=== PATIENT | male | born 1980 | race Two or more races ===

== ENCOUNTER → 2017-11-21 | Emergency (ER) | payer MEDICAID ==
[~2017-11-21] VITALS: Ht 167.6 cm; Wt 90.7 kg
[~2017-11-21] MED LIST: HYDROCODON-ACE1 EA15 ORAL; HYDROmorphone 1mg/ml Carpuject IVP ONE
[2017-11-21 23:45] VITALS: BP 142/86
[2017-11-21 23:47] LABS: APPEARANCE,URINE CLEAR; BILIRUBIN, URINE NEGATIVE (NEGATIVE); COLOR,URINE PALE YELLOW; GLUCOSE, URINE (UA) NEGATIVE (NEGATIVE); KETONES,URINE NEGATIVE (NEGATIVE); LEUKOCYTE ESTERASE ,URINE NEGATIVE (NEGATIVE); NITRITE,URINE NEGATIVE (NEGATIVE); PH,URINE 6.5 (4.5-8.0); PROTEIN,URINE NEGATIVE (NEGATIVE); UROBILINOGEN,URINE NORMAL MG/DL (0.0-1.0)
[2017-11-21 23:55] LABS: BASOPHILS % (AUTO) 0.8 % (0.0-2.0); EOSINOPHILS % (AUTO) 2.6 % (0.0-3.0); HEMOGLOBIN 14.2 G/DL (14.2-18.0); LYMPHOCYTES % (AUTO) 33.2 % (20.0-45.0); MEAN CORPUSCULAR VOLUME 86 FL (80-99); MONOCYTES % (AUTO) 9.9 % (1.0-10.0); NEUTROPHILS % (AUTO) 53.5 % (45.0-75.0); PLATELET COUNT 271 K/UL (150-450); RED BLOOD COUNT 4.54 M/UL (4.70-6.10); RED CELL DISTRIBUTION WIDTH 10.4 % (11.6-14.8); WHITE BLOOD COUNT 7.9 K/UL (4.8-10.8)
[2017-11-22 00:09] LABS: ANION GAP 7 mmol/L (5-15); BLOOD UREA NITROGEN 10 mg/dL (7-18); CALCIUM 8.8 MG/DL (8.5-10.1); CARBON DIOXIDE 29 MMOL/L (21-32); CHLORIDE 102 MMOL/L (98-107); CREATININE 0.9 MG/DL (0.55-1.30); POTASSIUM 3.3 MMOL/L (3.5-5.1); SODIUM 137 MMOL/L (136-145)
[2017-11-22 00:15] LABS: ALANINE AMINOTRANSFERASE 32 U/L (12-78); ALBUMIN 3.5 G/DL (3.4-5.0); ALBUMIN/GLOBULIN RATIO 0.8 (1.0-2.7); ALKALINE PHOSPHATASE 97 U/L (46-116); ASPARTATE AMINO TRANSFERASE 20 U/L (15-37); BILIRUBIN,TOTAL 0.6 MG/DL (0.2-1.0)
--- NOTE | 2017-11-22 00:42 | Emergency Room Report ---
History of Present Illness General Chief Complaint: Abdominal Pain Source: Patient Present Illness HPI This is a 37-year-old with no past medical history. He presents with chief complaint of bilateral quadrant pain. His been on and off for about a week but worse for the last 24 hours. Now radiating to the back. Nauseous but no vomiting. No diarrhea. Worse with eating. Similar symptoms in the past. No workup done. Allergies: Coded Allergies: No Known Allergies (Unverified , 11/21/17) Patient History Past Medical History: see triage record, old chart reviewed Past Surgical History: none Pertinent Family History: none Social History: Denies: smoking Immunizations: other Reviewed Nursing Documentation: PMH: Agreed, PSxH: Agreed Nursing Documentation-PMH Past Medical History: No Stated History Review of Systems Eye: Denies: eye pain, blurred vision ENT: Denies: ear pain, nose congestion, throat swelling Respiratory: Denies: cough, shortness of breath Cardiovascular: Denies: chest pain, palpitations Gastrointestinal: Reports: abdominal pain, nausea, Denies: diarrhea, vomiting Musculoskeletal: Denies: back pain, joint pain Skin: Denies: rash Neurological: Denies: headache, numbness Endocrine: Denies: increased thirst, increased urine Hematologic/Lymphatic: Denies: easy bruising All Other Systems: negative except mentioned in HPI Physical Exam Vital Signs Date Time Temp Pulse Resp B/P (MAP) Pulse Ox O2 Delivery O2 Flow Rate FiO2 11/21/17 23:19 97.8 67 14 142/86 98 Room Air 97.9 vitals normal Sp02 EP Interpretation: reviewed, normal General Appearance: well appearing, no apparent distress, alert Head: normocephalic, atraumatic Eyes: bilateral eye PERRL, bilateral eye EOMI ENT: hearing grossly normal, normal pharynx Neck: full range of motion, supple, no meningismus Respiratory: chest non-tender, lungs clear, normal breath sounds Cardiovascular #1: regular rate, rhythm, no murmur Gastrointestinal: normal bowel sounds, no mass, no organomegaly, no bruit, non- distended, tenderness - Right upper quadrant Musculoskeletal: back normal, gait/station normal, normal range of motion Psychiatric: mood/affect normal Skin: warm/dry Medical Decision Making Diagnostic Impression: Primary Impression: Cholelithiasis Qualified Codes: K80.20 - Calculus of gallbladder without cholecystitis without obstruction Additional Impression: Biliary colic ER Course Patient with right upper quadrant consistent with colic. I did a bedside ultrasound. Negative Burrell sign. He has a large gallstone but no obstruction. No stone in the neck of the gallbladder. Common bile duct normal. Gallbladder wall normal. Lab Results Impression labs normal Last Vital Signs Date Time Temp Pulse Resp B/P (MAP) Pulse Ox O2 Delivery O2 Flow Rate FiO2 11/21/17 23:53 97.8 11/21/17 23:19 67 14 142/86 98 Room Air Status: improved Disposition: HOME, SELF-CARE Condition: Stable Scripts Hydrocodone/Acetaminophen 5-325* (HYDROCODONE/ACETAMINOPHEN 5-325*) 1 Each Tablet 1 TAB ORAL Q6H Y for For Pain, #30 TAB 0 Refills Prov: FAITH HERZOG M.D. 11/22/17 Additional Instructions: Followup with your DrDeangelo in 7 days. You may need a referral to see a surgeon. Call the surgeon listed or followup at [facility]. Return if worse. FAITH HERZOG M.D. Nov 22, 2017 00:42
[2017-11-22 00:58] VITALS: BP 127/77
== END | disposition home or self-care (01) ==
LOC: EMR 23:33
DX: K80.20 Calculus of gallbladder without cholecystitis without obstruction (principal)
CPT/HCPCS: 36415; 80053; 81003; 83690; 85025; 96374; 96375; 99284; J1170; J2405

== ENCOUNTER 2019-07-10 18:50 | Emergency (ER) | payer MEDICAID ==
[~2019-07-10] VITALS: Ht 162.6 cm; Wt 79.4 kg
[~2019-07-10 18:50] MED LIST changes: -HYDROmorphone 1mg/ml Carpuject IVP ONE
[2019-07-10 19:00] VITALS: BP 124/84
--- NOTE | 2019-07-10 19:10 | NUR ---
ED Nurse Note: Pt came in due to tension headache x 3 days. Also reports recent blurring of his vision. Denies trauma but states he had a brain surgery a year ago. AAO x4 and ambulatory. Family member at the bed side.
--- NOTE | 2019-07-10 20:49 | Diagnostic Imaging Report ---
Indication: Headache and blurred vision 35-year-old Technique: The head was imaged in a 1.5 Beata magnet. Sequences obtained include sagittal and axial T1 FLAIR, axial T2 fast spin echo with fat saturation, axial T2* GRE, axial T2 FLAIR, diffusion and ADC map. Comparison: None Findings: The size, contour, and configuration of the sulci, ventricles, and basal cisterns appear normal. Alejandro-white differentiation is normal. There is no restricted diffusion. There is no mass effect, midline shift, edema, or hemorrhage. There are no abnormal extra-axial or intra-axial fluid collections. The corpus callosum is unremarkable. The brainstem and cerebellum are unremarkable. The sella is unremarkable. There is a small fluid retention cyst demonstrated within the left maxillary sinus measuring 2.2 x 1.7 cm. Bone marrow signal within the visualized osseous structures appears age appropriate and unremarkable otherwise. Impression: Negative MRI brain without contrast. Left maxillary fluid retention cyst
[2019-07-10 21:06] VITALS: BP 128/85
--- NOTE | 2019-07-10 21:35 | Emergency Room Report ---
History of Present Illness General Chief Complaint: Headache Source: Patient Present Illness HPI The patient complains of a pressure-like feeling in the back of his head. He states he also gets intermittent lightheadedness and blurry vision. He is 1 year postop from a repair of an Arnold-Chiari malformation. He did see his neurosurgeon [address] and underwent CT scans that showed normal healing. He denies recent illness. Denies fever or chills. He denies weakness. Denies tingling or numbness. He denies nausea or vomiting. He has no other complaints. Allergies: Coded Allergies: No Known Allergies (Unverified , 11/21/17) Patient History Past Medical History: none, see triage record Past Surgical History: other - AC malformation repair Social History: Denies: smoking, alcohol use, drug use Reviewed Nursing Documentation: PMH: Agreed; PSxH: Agreed Nursing Documentation-PMH Past Medical History: No Stated History Review of Systems All Other Systems: negative except mentioned in HPI Physical Exam Vital Signs Date Time Temp Pulse Resp B/P (MAP) Pulse Ox O2 Delivery O2 Flow Rate FiO2 07/10/19 19:00 98.1 71 16 124/84 95 Room Air Sp02 EP Interpretation: reviewed, normal General Appearance: no apparent distress, alert, GCS 15, non-toxic Head: normocephalic, atraumatic Eyes: bilateral eye normal inspection, bilateral eye PERRL ENT: hearing grossly normal, normal pharynx, no angioedema, normal voice Neck: full range of motion, supple/symm/no masses Respiratory: chest non-tender, lungs clear, normal breath sounds, no respiratory distress, no retraction, no accessory muscle use, speaking full sentences Rectal: deferred Musculoskeletal: back normal, gait/station normal, normal range of motion, non- tender Neurologic: alert, oriented x3, responsive, motor strength/tone normal, sensory intact, speech normal Psychiatric: judgement/insight normal, memory normal, mood/affect normal, no suicidal/homicidal ideation Skin: no rash, normal color Medical Decision Making Diagnostic Impression: Primary Impression: Headache ER Course Given this patient's history of Arnold-Chiari malformation and neurosurgery, I did obtain an MRI of the brain that extended through the superior portion of the neck. There was no evidence of abnormalities. I am unsure of the etiology of the patient's symptoms. Patient was instructed to follow-up closely with his neurosurgeon. He is given close return precautions and follow-up instructions. CT/MRI/US Diagnostic Results CT/MRI/US Diagnostic Results : Imaging Test Ordered: MRI brain Impression No acute findings. See official report in electronic medical record. Last Vital Signs Date Time Temp Pulse Resp B/P (MAP) Pulse Ox O2 Delivery O2 Flow Rate FiO2 07/10/19 21:06 98.5 73 15 128/85 100 Room Air Status: improved Disposition: HOME, SELF-CARE Condition: Improved Referrals: NON PHYSICIAN (PCP) Patient Instructions: General Headache Without Cause Priyanka Dick DO Jul 10, 2019 21:35
[2019-07-10 21:42] VITALS: BP 132/70
--- NOTE | 2019-07-10 21:42 | NUR ---
ER DISCHARGE NOTE: Patient is cleared to be discharged per ERMD, pt is aox4, on room air, with stable vital signs. pt was given dc instructions, pt was able to verbalize understanding, pt id band removed without complications. pt is able to ambulate with steady gait. pt took all belongings and left with his family member.
== END 2019-07-10 21:42 | disposition home or self-care (01) ==
LOC: EMR 20:39
DX: R51 Headache (principal); Z86.79 Personal history of other diseases of the circulatory system
CPT/HCPCS: 70551; Z7502; 99284

== ENCOUNTER 2019-11-24 15:19 | Emergency (ER) | payer MEDICAID ==
[~2019-11-24] VITALS: Ht 160 cm; Wt 81.6 kg
[2019-11-24 15:57] VITALS: BP 127/79
--- NOTE | 2019-11-24 15:57 | NUR ---
ED Nurse Note: Patient walked in to Er c/o blured vision x 3 days, stated had cervical surgery 1 year ago.
--- NOTE | 2019-11-24 16:00 | Emergency Room Report ---
History of Present Illness General Chief Complaint: Eye Problems Source: Patient Present Illness HPI 36 YO Male is presenting with 4 days of having heavy fatigued eyelids that are worse late in the afternoon and resolved in the morning. Patient denies actual blurry vision or visual changes. Patient reports he has a history of surgery for Arnold-Chiari malformation which was performed approximately 1 year ago. Patient reports he recently was seen by his primary care provider about 1 month ago. Patient states that he is concerned about possible diabetes and also reports polydipsia. He denies dizziness, sudden onset of a headache, photophobia, neck pain/stiffness. He denies experiencing heavy eyelids prior to the last 4 days. He denies fevers or chills. He denies rashes. He denies any other aggravating or relieving factors at this time. He reports he just took a ibuprofen 2 hours prior to arrival as he had a slight headache. He denies nausea or vomiting. Allergies: Coded Allergies: No Known Allergies (Unverified , 11/21/17) Patient History Past Medical History: see triage record Past Surgical History: none Pertinent Family History: none Reviewed Nursing Documentation: PMH: Agreed; PSxH: Agreed Nursing Documentation-PMH Past Medical History: No Stated History Review of Systems All Other Systems: negative except mentioned in HPI Physical Exam Vital Signs Date Time Temp Pulse Resp B/P (MAP) Pulse Ox O2 Delivery O2 Flow Rate FiO2 11/24/19 15:52 97.9 74 16 127/79 (95) 98 Room Air Sp02 EP Interpretation: reviewed, normal General Appearance: no apparent distress, alert, GCS 15, non-toxic Head: normocephalic, atraumatic Eyes: bilateral eye normal inspection, bilateral eye PERRL, bilateral eye EOMI , bilateral eye visual acuity, bilateral eye other - no photophobia, no nystagmus ENT: hearing grossly normal, normal voice Neck: full range of motion, no meningismus Respiratory: lungs clear, normal breath sounds, speaking full sentences Cardiovascular #1: regular rate, rhythm Musculoskeletal: normal range of motion, gait/station normal, non-tender Neurologic: alert, motor strength/tone normal, oriented x3, sensory intact, responsive, speech normal, grossly normal, no focal defects, other - No, pronator drift, Negative rhomberg, normal finger to nose, NO hemanopia on confrontation. No nystagmus, both eyes able to cross the midline. visual garcia equal to examiners, No facial droop, equal pediatric physical therapist strength bilaterally. Psychiatric: judgement/insight normal Skin: no rash Medical Decision Making PA Attestation Dr. Fernández is my supervising Physician whom patient management has been discussed with. Diagnostic Impression: Primary Impression: Blurry vision, bilateral ER Course 36 YO Male is presenting with 4 days of having heavy fatigued eyelids that are worse late in the afternoon and resolved in the morning. Patient denies actual blurry vision or visual changes. Patient reports he has a history of surgery for Arnold-Chiari malformation which was performed approximately 1 year ago. Patient reports he recently was seen by his primary care provider about 1 month ago. Patient states that he is concerned about possible diabetes and also reports polydipsia. He denies dizziness, sudden onset of a headache, photophobia, neck pain/stiffness. He denies experiencing heavy eyelids prior to the last 4 days. He denies fevers or chills. He denies rashes. He denies any other aggravating or relieving factors at this time. He reports he just took a ibuprofen 2 hours prior to arrival as he had a slight headache. He denies nausea or vomiting. Ddx considered but are not limited to Thyroid ophthalmopathy, Chronic progressive external ophthalmoplegia, Myotonic dystrophy and oculopharyngeal dystrophy, Brainstem and motor cranial nerve pathology, DM, HTN, botulism, migraine, SAH, Pseudomotor Cerebri, Mass lesion, Cluster EVERETT,or Tension EVERETT just to name a few. Vital signs: are WNL, pt. is afebrile H&PE are most consistent with isolated upper eyelid fatigue without visual changes. vision is 20/20 bilaterally. Patient is not having any pain. He is nontoxic in appearance in no acute distress and not demonstrating any focal neurological deficits. ORDERS: - none required at this time, dx is clinical. Accu-Chek: 81 ED INTERVENTIONS: -Education: Discussed with this patient that he will need to have extensive rheumatological testing and evaluation and he needs to follow-up with his neurologist and cytology technologist as well. Discussed with this patient that his primary care provider should be his main point of contact for coordinating his specialty referrals. -I do not identify an emergent condition at this time. With current presentation , pt. is stable for close outpatient follow up and conservative treatment. D/ w pt. to return promptly to ED with worsening or new symptoms.- Pt. verbalizes' understanding and agreement with proposed treatment plan.proposed treatment plan. DISCHARGE: At this time pt. is stable for d/c to home. Will provide printed patient care instructions, and any necessary prescriptions. Care plan and follow up instructions have been discussed with the patient prior to discharge. Last Vital Signs Date Time Temp Pulse Resp B/P (MAP) Pulse Ox O2 Delivery O2 Flow Rate FiO2 11/24/19 15:57 97.9 88 16 127/79 98 Room Air Disposition: HOME, SELF-CARE Condition: Stable Patient Instructions: Medical Screening Exam, Myasthenia Gravis Additional Instructions: Take medications as directed. Follow up with a PRIMARY CARE PROVIDER for referral to NEUROLOGIST and Tractor Technician within 48 HOURS, even if your symptoms have resolved. --Please review list of primary care clinics, if you do not already have a primary care provider Return sooner to ED if new symptoms occur, or current symptoms become worse. - Please note that this Emergency Department Report was dictated using Spring[employer] control worker technology software, occasionally this can lead to erroneous entry secondary to interpretation by the dictation equipment. Sherri Simpson Nov 24, 2019 16:00
[2019-11-24 17:29] VITALS: BP 124/77
--- NOTE | 2019-11-24 17:30 | NUR ---
ER DISCHARGE NOTE: Patient is cleared to be discharged per ERMD, pt is aox4, on room air, with stable vital signs. pt was given dc and prescription instructions, pt was able to verbalize understanding, pt id band removed. pt is able to ambulate with steady gait. pt took all belongings.
== END 2019-11-24 17:29 | disposition home or self-care (01) ==
LOC: EMR 16:05
DX: H53.8 Other visual disturbances (principal)
CPT/HCPCS: 99282

== ENCOUNTER 2020-05-29 22:00 | Emergency (ER) | payer MEDICAID ==
[~2020-05-29] VITALS: Ht 162.6 cm; Wt 81.6 kg
--- NOTE | 2020-05-29 22:10 | NUR ---
ED Nurse Note: Patient walked into the ED with c/o left sided body pain primarily on head onset 3 days ago. Patient states he had brain surgery 2 years ago because of liquid in brain. Patient reports vision changes. Patient denies injury. PAtient is AAOx4 and ambulatory. Placed on monitor bed
[2020-05-29] MEDS ORDERED: CARBAMAZEPINE200 M3 ORAL (22:12)
[2020-05-29 22:36] VITALS: BP 128/84
--- NOTE | 2020-05-29 22:40 | NUR ---
ED Nurse Note: Blood and urine specimen sent to lab for workup
--- NOTE | 2020-05-29 22:40 | NUR ---
ED Nurse Note: ERMD at bedside
[2020-05-29] MEDS ORDERED: Metoclopramide 10mg/2ml Inj IVP ONE (22:45)
[2020-05-29] MEDS ORDERED: Ketorolac 30mg Inj IV ONE (22:45)
[2020-05-29] MEDS ORDERED: DiphenhydrAMINE 50mg/ml Inj IVP ONE (22:45)
--- NOTE | 2020-05-29 22:51 | Emergency Room Report ---
History of Present Illness General Chief Complaint: Headache Source: Patient Present Illness HPI The patient presents with 1 week of left-sided headache associated with blurry vision and left-sided paresthesias. He says he had liquid in his brain that was diagnosed 2 years ago and had brain surgery. When he gets headaches he takes gabapentin and Tylenol. It has not helped with the headache this time. He also is on carbamazepine. He denies having seizures. He reports the pain 8/ 10. It is constant and throbbing. The feeling in his left arm and leg is slightly worse over the last 3 days. He denies weakness but says that his arm feels different. In addition he reports blurry vision in his left eye. He denies photophobia. No fevers or chills. There is no nausea, vomiting or diarrhea. He denies any neck pain. No sore throat, chest pain, palpitations, dysuria, abdominal pain, shortness of breath, joint pain, rashes, depression, anxiety, dizziness. Allergies: Coded Allergies: No Known Allergies (Unverified , 11/21/17) COVID-19 Screening Contact w/high risk pt: No Experienced COVID-19 symptoms?: No COVID-19 Testing performed PRODUCTION SUPERINTENDENT HYDRO: No Patient History Past Medical History: see triage record Past Surgical History: other Social History: Denies: smoking Social History Narrative not working Reviewed Nursing Documentation: PMH: Agreed; PSxH: Agreed Nursing Documentation-PMH Past Medical History: No History, Except For Review of Systems All Other Systems: negative except mentioned in HPI Physical Exam Vital Signs Date Time Temp Pulse Resp B/P (MAP) Pulse Ox O2 Delivery O2 Flow Rate FiO2 05/29/20 22:07 98.4 95 18 135/87 (103) 97 Room Air Sp02 EP Interpretation: reviewed, normal General Appearance: well appearing, no apparent distress, GCS 15 Head: normocephalic Eyes: bilateral eye normal inspection, bilateral eye PERRL, bilateral eye EOMI ENT: normal pharynx, moist mucus membranes Neck: full range of motion, supple, no meningismus Respiratory: lungs clear, normal breath sounds Cardiovascular #1: regular rate, rhythm Cardiovascular #2: 2+ radial (R) Gastrointestinal: normal inspection, normal bowel sounds, non tender, non- distended Musculoskeletal: back normal, normal range of motion, gait/station normal Neurologic: alert, motor strength/tone normal, alteration specialist III-XII nml as tested, DTRs symmetric, oriented x3, sensory intact, cerebellar normal, speech normal Psychiatric: depressed affect Skin: no rash, warm/dry Medical Decision Making Diagnostic Impression: Primary Impression: Headache Qualified Codes: R51 - Headache ER Course Patient presents with 1 week of headache with left-sided symptoms. He also states that he had fluid in his brain requiring an operation in 2018. Differential includes brain bleed, reaccumulation of CSF fluid, tension headache , migraine variant, stroke amongst others. No signs or symptoms of meningitis or cerebritis. The fact that symptoms have persisted for a week suggest that lesions would be seen on CT scan and therefore this is indicated. In addition patient is evaluated with EKG, chest x-ray and labs. Patient treated with Reglan, Benadryl and Toradol. EKG normal sinus rhythm rate of 82. Chest x-ray unremarkable. CT of the head normal. Labs with normal CBC and CMP aside from minimally elevated blood sugar. Sedimentation rate 22. Pain, blurred vision, abnormal sensation resolved with treatment. This suggests his symptoms might be a migraine variant. No medical emergency identified at this time. Discussed findings and treatment plan with patient. Discussed the need for follow-up with his neurologist. Patient stable for outpatient observation and treatment. Laboratory Tests Test 05/29/20 22:30 White Blood Count 5.5 K/UL (4.8-10.8) Red Blood Count 4.99 M/UL (4.70-6.10) Hemoglobin 14.0 G/DL (14.2-18.0) L Hematocrit 41.8 % (42.0-52.0) L Mean Corpuscular Volume 84 FL (80-99) Mean Corpuscular Hemoglobin 28.0 PG (27.0-31.0) Mean Corpuscular Hemoglobin Concent 33.5 G/DL (32.0-36.0) Red Cell Distribution Width 13.0 % (11.6-14.8) Platelet Count 249 K/UL (150-450) Mean Platelet Volume 8.1 FL (6.5-10.1) Neutrophils (%) (Auto) 51.9 % (45.0-75.0) Lymphocytes (%) (Auto) 34.7 % (20.0-45.0) Monocytes (%) (Auto) 9.2 % (1.0-10.0) Eosinophils (%) (Auto) 3.0 % (0.0-3.0) Basophils (%) (Auto) 1.2 % (0.0-2.0) Erythrocyte Sedimentation Rate 22 MM/HR (0-15) H Prothrombin Time 10.1 SEC (9.30-11.50) Prothrombin Time INR 0.9 (0.9-1.1) Activated Partial Thromboplast Time 29 SEC (23-33) Urine Color Yellow Urine Appearance Clear Urine pH 6.0 (4.5-8.0) Urine Specific [place] 1.020 (1.005-1.035) Urine Protein Negative (NEGATIVE) Urine Glucose (UA) Negative (NEGATIVE) Urine Ketones Negative (NEGATIVE) Urine Blood Negative (NEGATIVE) Urine Nitrite Negative (NEGATIVE) Urine Bilirubin Negative (NEGATIVE) Urine Urobilinogen Normal MG/DL (0.0-1.0) Urine Leukocyte Esterase Negative (NEGATIVE) Sodium Level 142 MMOL/L (136-145) Potassium Level 3.6 MMOL/L (3.5-5.1) Chloride Level 106 MMOL/L (98-107) Carbon Dioxide Level 28 MMOL/L (21-32) Anion Gap 8 mmol/L (5-15) Blood Urea Nitrogen 16 mg/dL (7-18) Creatinine 1.2 MG/DL (0.55-1.30) Estimated Glomerular Filtration Rate > 60 mL/min (>60) Glucose Level 121 MG/DL (74-106) H Calcium Level 8.6 MG/DL (8.5-10.1) Total Bilirubin 0.3 MG/DL (0.2-1.0) Aspartate Amino Transferase (AST) 23 U/L (15-37) Alanine Aminotransferase (ALT) 40 U/L (12-78) Alkaline Phosphatase 98 U/L (46-116) Total Creatine Kinase 110 U/L (26-308) Troponin I 0.000 ng/mL (0.000-0.056) Pro-B-Type Natriuretic Peptide 18 pg/mL (0-125) Total Protein 7.8 G/DL (6.4-8.2) Albumin 3.9 G/DL (3.4-5.0) Globulin 3.9 g/dL Albumin/Globulin Ratio 1.0 (1.0-2.7) Urine Opiates Screen Negative (NEGATIVE) Urine Barbiturates Screen Negative (NEGATIVE) Carbamazepine (Tegretol) Level 6.1 ug/mL (4.0-12.0) Phencyclidine (PCP) Screen Negative (NEGATIVE) Urine Amphetamines Screen Negative (NEGATIVE) Urine Benzodiazepines Screen Negative (NEGATIVE) Urine Cocaine Screen Negative (NEGATIVE) Urine Marijuana (THC) Screen Negative (NEGATIVE) EKG Diagnostic Results Rate: normal Rhythm: NSR ST Segments: no acute changes Rhythm Strip Diag. Results EP Interpretation: yes Rhythm: NSR, no PVC's, no ectopy Chest X-Ray Diagnostic Results Chest X-Ray Diagnostic Results : Chest X-Ray Ordered: Yes # of Views/Limited/Complete: 1 View Indication: Other EP Interpretation: Yes Interpretation: no consolidation, no effusion, no pneumothorax, other - poor insp Impression: Other Electronically Signed by: Electronically signed by Horace Sevilla MD CT/MRI/US Diagnostic Results CT/MRI/US Diagnostic Results : Imaging Test Ordered: head Impression in intracranial pathology Last Vital Signs Date Time Temp Pulse Resp B/P (MAP) Pulse Ox O2 Delivery O2 Flow Rate FiO2 05/30/20 03:02 98.0 74 18 124/85 96 Room Air Status: improved Disposition: HOME, SELF-CARE Condition: Improved Scripts Ibuprofen* (MOTRIN*) 600 Mg Tablet 600 MG ORAL Q6H PRN for FOR PAIN, #20 TAB 0 Refills Prov: Horace Sevilla MD 05/30/20 Referrals: NOT CHOSEN IPA/,REFERRING (PCP) Horace Sevilla MD May 29, 2020 22:50
--- NOTE | 2020-05-29 23:04 | NUR ---
ED Nurse Note: casting technician at bedside. Pt to CT per wheelchair
[2020-05-29 23:14] LABS: INR 0.9 (0.9-1.1)
[2020-05-29 23:17] LABS: BASOPHILS % (AUTO) 1.2 % (0.0-2.0); HEMATOCRIT 41.8 % (42.0-52.0); LYMPHOCYTES % (AUTO) 34.7 % (20.0-45.0); MEAN CORPUSCULAR VOLUME 84 FL (80-99); MONOCYTES % (AUTO) 9.2 % (1.0-10.0); NEUTROPHILS % (AUTO) 51.9 % (45.0-75.0); PLATELET COUNT 249 K/UL (150-450); RED BLOOD COUNT 4.99 M/UL (4.70-6.10); WHITE BLOOD COUNT 5.5 K/UL (4.8-10.8)
[2020-05-29 23:20] LABS: APPEARANCE,URINE CLEAR; COLOR,URINE YELLOW
[2020-05-29 23:21] LABS: ANION GAP 8 mmol/L (5-15); BILIRUBIN, URINE NEGATIVE (NEGATIVE); BLOOD UREA NITROGEN 16 mg/dL (7-18); CALCIUM 8.6 MG/DL (8.5-10.1); CARBON DIOXIDE 28 MMOL/L (21-32); CHLORIDE 106 MMOL/L (98-107); CREATININE 1.2 MG/DL (0.55-1.30); GLUCOSE, URINE (UA) NEGATIVE (NEGATIVE); KETONES,URINE NEGATIVE (NEGATIVE); LEUKOCYTE ESTERASE ,URINE NEGATIVE (NEGATIVE); NITRITE,URINE NEGATIVE (NEGATIVE); POTASSIUM 3.6 MMOL/L (3.5-5.1); PROTEIN,URINE NEGATIVE (NEGATIVE); SODIUM 142 MMOL/L (136-145); UROBILINOGEN,URINE NORMAL MG/DL (0.0-1.0)
--- NOTE | 2020-05-29 23:24 | Diagnostic Imaging Report ---
EXAM: CT Head Without Intravenous Contrast CLINICAL HISTORY: H/A TECHNIQUE: Axial computed tomography images of the head/brain without intravenous contrast. CTDI is 53.4 mGy and DLP is 965.4 mGy-cm. One or more of the following dose reduction techniques were used: automated exposure control, adjustment of the mA and/or kV according to patient size, use of iterative reconstruction technique. COMPARISON: MRI brain 07/10/2019 FINDINGS: Brain: Unremarkable. No hemorrhage. No significant white matter disease. No edema. Ventricles: Unremarkable. No ventriculomegaly. Bones/joints: Unremarkable. No acute fracture. Soft tissues: Unremarkable. Sinuses: Unremarkable as visualized. No acute sinusitis. Mastoid air cells: Unremarkable as visualized. No mastoid effusion. IMPRESSION: 1. No acute intracranial abnormality. 2. Unremarkable study.
[2020-05-29 23:28] LABS: ALANINE AMINOTRANSFERASE 40 U/L (12-78); ALBUMIN 3.9 G/DL (3.4-5.0); ALKALINE PHOSPHATASE 98 U/L (46-116); ASPARTATE AMINO TRANSFERASE 23 U/L (15-37); BILIRUBIN,TOTAL 0.3 MG/DL (0.2-1.0); CREATINE KINASE 110 U/L (26-308)
--- NOTE | 2020-05-29 23:30 | NUR ---
ED Nurse Note: Pt back from CT SCAn
--- NOTE | 2020-05-29 23:34 | Diagnostic Imaging Report ---
EXAM: XR Chest, 1 View CLINICAL HISTORY: H/A TECHNIQUE: Frontal view of the chest. COMPARISON: No relevant prior studies available. FINDINGS: Lungs: Low lung volumes with bronchovascular crowding. No consolidation, pleural effusion, or pneumothorax. Pleural space: See above. Heart: Unremarkable. No cardiomegaly. Mediastinum: Unremarkable. Bones/joints: No acute abnormality IMPRESSION: 1. Low lung volumes with bronchovascular crowding. 2. Otherwise no acute cardiopulmonary disease. 3. If there is further concern, recommend additional imaging such as CT.
[2020-05-30] MEDS ORDERED: IBUPROFEN600 M1 ORAL (02:53)
--- NOTE | 2020-05-30 03:01 | NUR ---
ER DISCHARGE NOTE: Patient is cleared to be discharged per ERMD, pt is aox4, on room air, with stable vital signs. pt was given dc and prescription instructions, pt was able to verbalize understanding, pt id band and iv site removed without complications. pt is able to ambulate with steady gait. pt took all belongings.
[2020-05-30 03:02] VITALS: BP 124/85
== END 2020-05-30 03:04 | disposition home or self-care (01) ==
LOC: EMR 22:37
DX: R51 Headache (principal); R20.2 Paresthesia of skin; H53.8 Other visual disturbances
CPT/HCPCS: 36415; 70450; 71045; 80053; 80156; 80307; 81003; 82550; 83880; 84484; 85025; 85610; 85651; 85730; 93005; 96361; 96374; 96375; J1200; J1885; J2765; J7030; Z7502; 99284